=== PATIENT | female | born 1970 | race Caucasian/White ===

== ENCOUNTER 2020-10-31 09:46 | Emergency (ER) | payer OTHER ==
[2020-10-31] MEDS ORDERED: Ketorolac Tromethamine 30 MG/ML VIAL ONE (11:34)
[2020-10-31] MEDS ORDERED: Ondansetron PF 4 MG/2 ML Vial ONE (11:34)
[2020-10-31 11:48] LABS: #Lymphocytes 1.4 thou/uL (1.20-3.40); #Monocytes 0.3 thou/uL (0.11-0.59); #Neutrophils 2.1 thou/uL (1.40-6.50); %Basophils 0.5 % (0.0-1.0); %Eosinophils 0.3 % (0.0-10.0); %Lymphocytes 35.6 % (21.0-51.0); %Monocytes 8.4 % (0.0-10.0); %Neutrophils 55.2 % (42.0-75.0); Hemoglobin 14.4 g/dL (12.0-16.0); Mean Corpuscular HGB CONC 32.6 g/dL (32.0-36.0); Mean Corpuscular Hemoglobin 28.2 pg (27.0-31.0); Mean Corpuscular Volume 86.6 fL (78.0-98.0); Platelet Count 203 thou/uL (130-400); Red Blood Cell (RBC) Count 5.11 mill/uL (4.20-5.40); White Blood Cell (WBC) Count 3.9 thou/uL (4.8-10.8)
[2020-10-31 12:14] LABS: ALT (SGPT) 24 U/L (8-55); AST (SGOT) 34 U/L (5-34); Albumin 4.3 g/dL (3.5-5.0); Alkaline Phosphatase 106 U/L (40-110); Anion Gap 15 mmol/L (10-20); BUN (Urea Nitrogen) 10 mg/dL (7.0-18.7); Bilirubin, Total 0.6 mg/dL (0.2-1.2); Calc. Creatinine Clearance 0 mL/min (70-130); Calcium 9.2 mg/dL (7.8-10.44); Carbon Dioxide 23 mmol/L (22-29); Chloride 105 mmol/L (98-107); Globulin 2.8 g/dL (2.4-3.5); Glucose 92 mg/dL (70-105); Potassium 3.7 mmol/L (3.5-5.1); Protein, Total 7.1 g/dL (6.0-8.3); Sodium 139 mmol/L (136-145)
[2020-10-31] MEDS ORDERED: Promethazine HCl 25 MG/ML VIAL ONE (12:23)
== END 2020-10-31 14:15 | disposition home or self-care (01) ==
LOC: ERS 09:46
DX: U07.1 COVID-19 (principal); Z79.899 Other long term (current) drug therapy
CPT/HCPCS: 71045; 80053; 84484; 85025; 93005; 96365; 96375; J1885; J2405; J2550

== ENCOUNTER 2020-11-17 17:25 | Outpatient (CLI) | payer OTHER | END 2020-11-17 17:26 | disposition home or self-care (01) | LOC: SCSRAD 17:25 | PROVIDERS: ATTEND Family Medicine | DX: U09.9 Post COVID-19 condition, unspecified (principal) | CPT/HCPCS: 71046 ==